=== PATIENT | male | born 1960 | race Caucasian/White ===

== ENCOUNTER 2020-10-27 03:33 | Emergency (ER) | payer MEDICARE ==
[~2020-10-27] VITALS: Ht 172.7 cm; Wt 62.1 kg
== END 2020-10-27 04:20 ==
LOC: ER 03:46
DX: Z43.0 Encounter for attention to tracheostomy (principal)
CPT/HCPCS: 99282

== ENCOUNTER 2020-11-07 04:14 | Inpatient (IN) | payer MEDICARE ==
[~2020-11-07] VITALS: Ht 172.7 cm; Wt 52.2 kg
[2020-11-07] MEDS ORDERED: VANCOMYCIN 1GM/NS 250 ML 250 ML IV STA (04:57)
[2020-11-07] MEDS ORDERED: CEFEPIME HCL 1GM 1 GM in SODIUM CHLORIDE 0.9% 50ML 50 ML IV ONE (05:00)
[2020-11-07] MEDS ORDERED: SODIUM CHLORIDE 0.9% 1000ML 1,000 ML IV SCH (05:00)
[2020-11-07] MEDS ORDERED: ASPIRIN 81 MG CHEW TAB PO ONE ×2 (05:00→06:30)
[2020-11-07 05:48] LABS: BASOPHILS % 0.2 % (0.0-1.0); EOSINOPHILS # (AUTO) 0.1 (0.0-0.4); EOSINOPHILS % 0.5 % (0.0-6.0); HEMATOCRIT 28.1 % (38.2-49.6); HEMOGLOBIN 8.7 g/dL (14.0-18.0); LYMPHOCYTES # (AUTO) 1.7 (1.0-3.2); LYMPHOCYTES % 8.6 % (18.0-39.1); MEAN CORPUSCULAR HEMOGLOBIN 29.1 pg (28-32); MONOCYTES % 4.9 % (4.4-11.3); NEUTROPHILS # (AUTO) 16.9 (2.1-6.9); NEUTROPHILS % 85.2 % (38.7-80.0); PLATELET COUNT 224 x10e3/uL (140-360); RED BLOOD COUNT 2.99 x10e6/uL (4.3-5.7); RED CELL DISTRIBUTION WIDTH 16.8 % (11.7-14.4)
[2020-11-07 06:28] LABS: ALANINE AMINOTRANSFERASE 60 IU/L (0-55); ALBUMIN 2.9 g/dL (3.5-5.0); ALBUMIN/GLOBULIN RATIO 0.7 (0.8-2.0); ALKALINE PHOSPHATASE 134 IU/L (40-150); ANION GAP 16.1 mmol/L (8-16); BLOOD UREA NITROGEN 42 mg/dL (7-26); BUN/CREATININE RATIO 36 (6-25); CALCIUM 8.6 mg/dL (8.4-10.2); CARBON DIOXIDE 24 mmol/L (22-29); CHLORIDE 100 mmol/L (98-107); CREATINE KINASE 343 IU/L (30-200); CREATININE, SERUM 1.17 mg/dL (0.72-1.25); EST GLOMERULAR FILTRATION RATE > 60 ML/MIN (60-); GLUCOSE 92 mg/dL (74-118); POTASSIUM 5.1 mmol/L (3.5-5.1); SODIUM 135 mmol/L (136-145)
[2020-11-07] MEDS: ACETAMINOPHEN 650 MG SUPP PR PRN ×2 (06:32→16:04)
[2020-11-07] MEDS: SODIUM CHLORIDE 0.9% 1000ML 1,000 ML IV SCH ×2 (07:45→14:56)
[2020-11-07 08:35] LABS: CLARITY,URINE CLEAR (CLEAR); COLOR,URINE YELLOW (YELLOW); KETONES,URINE NEGATIVE (NEGATIVE); LEUKOCYTE ESTERASE ,URINE MODERATE (NEGATIVE); NITRITE,URINE NEGATIVE (NEGATIVE); PROTEIN,URINE DIPSTICK 2+ (NEGATIVE); URINE UROBILINOGEN 0.2 mg/dL (0.2 - 1)
[2020-11-07 08:36] LABS: BACTERIA,URINE MANY /HPF; EPITHELIAL CELLS,URINE FEW /LPF; RBC,URINE 21-50 /HPF (0-5); WBC,URINE (MAN) >50 /HPF (0-5)
[2020-11-07 09:58] VITALS: BP 156/74
[2020-11-07] MEDS ORDERED: CLONIDINE HCL0.2 MG PEG (10:43)
[2020-11-07] MEDS ORDERED: AMLODIPINE BESY10 MG PEG (10:43)
[2020-11-07] MEDS ORDERED: BACLOFEN10 MG PEG (10:43)
[2020-11-07] MEDS ORDERED: TYLENOL325 MG PEG (10:43)
[2020-11-07] MEDS ORDERED: ATORVASTATIN CA10 MG PEG (10:43)
[2020-11-07] MEDS ORDERED: FAMOTIDINE20 MG PEG (10:43)
[2020-11-07] MEDS: MEROPENEM 1GM 100 ML IV SCH ×2 (10:45→21:47)
[2020-11-07] MEDS ORDERED: METOPROLOL TART50 MG PEG (11:09)
[2020-11-07] MEDS ORDERED: MIRALAX17 GM PEG (11:09)
[2020-11-07] MEDS ORDERED: HYDRALAZINE HCL50 MG PEG (11:09)
[2020-11-07] MEDS ORDERED: IPRAT-ALBUT 0.5-3 ML NEB (11:09)
[2020-11-07] MEDS ORDERED: GLYCOPYRROLATE2 MG PEG (11:09)
[2020-11-07] MEDS ORDERED: RISPERIDONE0.5 MG PEG (11:09)
[2020-11-07 11:19] VITALS: BP 152/101
[2020-11-07 11:53] VITALS: BP 156/74
[2020-11-07 16:12] VITALS: BP 137/65
[2020-11-07] MEDS ORDERED: NON-FORMULARY MEDICATION (Hydralazine Hcl* 50 MG) PEG SCH (18:00)
[2020-11-07] MEDS: RISPERIDONE 0.5 MG TAB PEG SCH (19:20)
[2020-11-07] MEDS: POLYETHYLENE GLYCOL 3350 17 GM PACK PEG SCH (19:20)
[2020-11-07] MEDS: HYDRALAZINE HCL 25 MG TAB PEG SCH (19:20)
[2020-11-07 20:41] VITALS: BP 140/65
[2020-11-07] MEDS: CLONIDINE HCL 0.3 MG TAB PEG SCH (21:47)
[2020-11-07] MEDS: ATORVASTATIN 10 MG TAB GT SCH (21:47)
[2020-11-07] MEDS: METOPROLOL TARTRATE 50 MG TAB PEG SCH (21:48)
[2020-11-07] MEDS: GLYCOPYRROLATE 1 MG TAB PEG SCH (21:48)
[2020-11-07] MEDS ORDERED: NON-FORMULARY MEDICATION (Glycopyrrolate 1 MG) PEG SCH (22:00)
[2020-11-07 23:05] VITALS: BP 140/65
[2020-11-08] VITALS (8 sets, daily range): BP systolic 119–156; BP diastolic 54–90
[2020-11-08] MEDS: SODIUM CHLORIDE 0.9% 1000ML 1,000 ML IV SCH ×2 (01:40→06:30)
[2020-11-08 02:42] LABS: CREATINE KINASE MB 1.2 ng/mL (0-5.0)
[2020-11-08 04:54] LABS: BASOPHILS % 0.3 % (0.0-1.0); EOSINOPHILS # (AUTO) 0.2 (0.0-0.4); EOSINOPHILS % 1.2 % (0.0-6.0); HEMATOCRIT 24.3 % (38.2-49.6); HEMOGLOBIN 7.4 g/dL (14.0-18.0); LYMPHOCYTES # (AUTO) 1.1 (1.0-3.2); LYMPHOCYTES % 7.7 % (18.0-39.1); MEAN CORPUSCULAR HEMOGLOBIN 29.1 pg (28-32); MEAN CORPUSCULAR HGB CONC 30.5 g/dL (31-35); MEAN CORPUSCULAR VOLUME 95.7 fL (81-99); MONOCYTES # (AUTO) 0.9 (0.2-0.8); MONOCYTES % 6.5 % (4.4-11.3); NEUTROPHILS # (AUTO) 11.5 (2.1-6.9); NEUTROPHILS % 83.7 % (38.7-80.0); PLATELET COUNT 228 x10e3/uL (140-360); RED BLOOD COUNT 2.54 x10e6/uL (4.3-5.7); RED CELL DISTRIBUTION WIDTH 16.7 % (11.7-14.4)
[2020-11-08 05:15] LABS: ALANINE AMINOTRANSFERASE 76 IU/L (0-55); ALBUMIN 2.4 g/dL (3.5-5.0); ALBUMIN/GLOBULIN RATIO 0.6 (0.8-2.0); ALKALINE PHOSPHATASE 105 IU/L (40-150); ANION GAP 14.1 mmol/L (8-16); BLOOD UREA NITROGEN 30 mg/dL (7-26); BUN/CREATININE RATIO 32 (6-25); CALCIUM 8.4 mg/dL (8.4-10.2); CARBON DIOXIDE 20 mmol/L (22-29); CHLORIDE 108 mmol/L (98-107); CREATININE, SERUM 0.93 mg/dL (0.72-1.25); EST GLOMERULAR FILTRATION RATE > 60 ML/MIN (60-); GLUCOSE 104 mg/dL (74-118); POTASSIUM 4.1 mmol/L (3.5-5.1); SODIUM 138 mmol/L (136-145)
[2020-11-08 05:56] LABS: FERRITIN 442.12 ng/mL (21.81-274.66)
[2020-11-08] MEDS: CLONIDINE HCL 0.3 MG TAB PEG SCH ×3 (06:01→22:00)
[2020-11-08] MEDS: METOPROLOL TARTRATE 50 MG TAB PEG SCH ×3 (06:01→22:00)
[2020-11-08] MEDS: POLYETHYLENE GLYCOL 3350 17 GM PACK PEG SCH ×2 (06:01→17:11)
[2020-11-08] MEDS: HYDRALAZINE HCL 25 MG TAB PEG SCH ×4 (06:01→17:09)
[2020-11-08] MEDS: GLYCOPYRROLATE 1 MG TAB PEG SCH ×3 (06:01→22:00)
[2020-11-08] MEDS: RISPERIDONE 0.5 MG TAB PEG SCH ×2 (06:01→17:11)
[2020-11-08] MEDS: ALBUTEROL/IPRATROPIUM 3 ML NEB NEB SCH ×3 (07:30→19:30)
[2020-11-08] MEDS: MEROPENEM 1GM 100 ML IV SCH ×2 (09:12→21:00)
[2020-11-08] MEDS: AMLODIPINE BESYLATE 10 MG TAB PEG SCH (09:12)
[2020-11-08] MEDS: BACLOFEN 10 MG TAB PEG SCH ×2 (09:12→16:05)
[2020-11-08] MEDS: FAMOTIDINE 20 MG TAB PEG SCH ×2 (09:12→16:05)
[2020-11-08] MEDS: VANCOMYCIN 500MG/NS 0.9% 100ML 100 ML IV SCH (15:15)
[2020-11-08] MEDS: ATORVASTATIN 10 MG TAB GT SCH (21:00)
[2020-11-08] MEDS: HEPARIN SOD (PORCINE) 5,000 UNIT/ML VIAL SC SCH (21:00)
[2020-11-08] MEDS: ACETAMINOPHEN 650 MG SUPP PR PRN (22:00)
[2020-11-08] MEDS ORDERED: SODIUM CHLORIDE 0.9% 250ML 250 ML ONE (22:00)
[2020-11-09] VITALS (9 sets, daily range): BP systolic 136–167; BP diastolic 63–89
[2020-11-09] MEDS: VANCOMYCIN 500MG/NS 0.9% 100ML 100 ML IV SCH ×3 (03:01→15:45)
[2020-11-09] MEDS: ALBUTEROL/IPRATROPIUM 3 ML NEB NEB SCH ×4 (03:05→19:35)
[2020-11-09 05:55] LABS: BASOPHILS % 0.3 % (0.0-1.0); EOSINOPHILS # (AUTO) 0.3 (0.0-0.4); EOSINOPHILS % 2.5 % (0.0-6.0); HEMATOCRIT 22.4 % (38.2-49.6); LYMPHOCYTES # (AUTO) 1.9 (1.0-3.2); LYMPHOCYTES % 16.9 % (18.0-39.1); MEAN CORPUSCULAR HEMOGLOBIN 29.3 pg (28-32); MEAN CORPUSCULAR HGB CONC 31.3 g/dL (31-35); MEAN CORPUSCULAR VOLUME 93.7 fL (81-99); MONOCYTES % 8.5 % (4.4-11.3); NEUTROPHILS # (AUTO) 7.9 (2.1-6.9); NEUTROPHILS % 71.3 % (38.7-80.0); PLATELET COUNT 243 x10e3/uL (140-360); RED BLOOD COUNT 2.39 x10e6/uL (4.3-5.7); RED CELL DISTRIBUTION WIDTH 16.5 % (11.7-14.4)
[2020-11-09] MEDS: GLYCOPYRROLATE 1 MG TAB PEG SCH ×3 (06:00→21:09)
[2020-11-09] MEDS: METOPROLOL TARTRATE 50 MG TAB PEG SCH ×3 (06:00→21:09)
[2020-11-09] MEDS: RISPERIDONE 0.5 MG TAB PEG SCH ×2 (06:00→17:16)
[2020-11-09] MEDS: CLONIDINE HCL 0.3 MG TAB PEG SCH ×3 (06:00→21:08)
[2020-11-09] MEDS: POLYETHYLENE GLYCOL 3350 17 GM PACK PEG SCH ×2 (06:00→17:16)
[2020-11-09] MEDS: HYDRALAZINE HCL 25 MG TAB PEG SCH ×5 (06:00→23:55)
[2020-11-09 06:12] LABS: ALANINE AMINOTRANSFERASE 84 IU/L (0-55); ALBUMIN 2.2 g/dL (3.5-5.0); ALBUMIN/GLOBULIN RATIO 0.6 (0.8-2.0); ALKALINE PHOSPHATASE 105 IU/L (40-150); ANION GAP 11.8 mmol/L (8-16); BLOOD UREA NITROGEN 25 mg/dL (7-26); BUN/CREATININE RATIO 31 (6-25); CARBON DIOXIDE 20 mmol/L (22-29); CHLORIDE 108 mmol/L (98-107); CREATININE, SERUM 0.81 mg/dL (0.72-1.25); EST GLOMERULAR FILTRATION RATE > 60 ML/MIN (60-); GLUCOSE 122 mg/dL (74-118); POTASSIUM 3.8 mmol/L (3.5-5.1); SODIUM 136 mmol/L (136-145)
[2020-11-09] MEDS: MEROPENEM 1GM 100 ML IV SCH ×2 (09:43→21:08)
[2020-11-09] MEDS: BACLOFEN 10 MG TAB PEG SCH ×2 (09:44→17:15)
[2020-11-09] MEDS: FAMOTIDINE 20 MG TAB PEG SCH ×2 (09:44→17:15)
[2020-11-09] MEDS: AMLODIPINE BESYLATE 10 MG TAB PEG SCH (09:44)
[2020-11-09] MEDS: HEPARIN SOD (PORCINE) 5,000 UNIT/ML VIAL SC SCH ×2 (10:15→21:08)
[2020-11-09] MEDS: ATORVASTATIN 10 MG TAB GT SCH (21:08)
[2020-11-09] MEDS: ACETAMINOPHEN 325 MG/10 ML UDC PEG PRN (23:54)
[2020-11-10] VITALS (8 sets, daily range): BP systolic 130–160; BP diastolic 57–75
[2020-11-10] MEDS: ALBUTEROL/IPRATROPIUM 3 ML NEB NEB SCH ×4 (00:35→19:40)
[2020-11-10] MEDS: VANCOMYCIN 500MG/NS 0.9% 100ML 100 ML IV SCH ×2 (03:20→18:31)
[2020-11-10] MEDS: POLYETHYLENE GLYCOL 3350 17 GM PACK PEG SCH ×2 (06:03→18:20)
[2020-11-10] MEDS: CLONIDINE HCL 0.3 MG TAB PEG SCH ×3 (06:03→22:23)
[2020-11-10] MEDS: METOPROLOL TARTRATE 50 MG TAB PEG SCH ×3 (06:03→22:23)
[2020-11-10] MEDS: HYDRALAZINE HCL 25 MG TAB PEG SCH ×3 (06:03→18:20)
[2020-11-10] MEDS: RISPERIDONE 0.5 MG TAB PEG SCH ×2 (06:03→18:20)
[2020-11-10] MEDS: GLYCOPYRROLATE 1 MG TAB PEG SCH ×3 (06:03→22:23)
[2020-11-10 06:19] LABS: ANION GAP 15.1 mmol/L (8-16); BLOOD UREA NITROGEN 24 mg/dL (7-26); BUN/CREATININE RATIO 29 (6-25); CALCIUM 8.3 mg/dL (8.4-10.2); CARBON DIOXIDE 19 mmol/L (22-29); CHLORIDE 106 mmol/L (98-107); CREATININE, SERUM 0.82 mg/dL (0.72-1.25); EST GLOMERULAR FILTRATION RATE > 60 ML/MIN (60-); GLUCOSE 110 mg/dL (74-118); POTASSIUM 4.1 mmol/L (3.5-5.1); SODIUM 136 mmol/L (136-145)
[2020-11-10 06:45] LABS: BASOPHILS % 0.4 % (0.0-1.0); EOSINOPHILS # (AUTO) 0.3 (0.0-0.4); EOSINOPHILS % 2.6 % (0.0-6.0); HEMATOCRIT 21.5 % (38.2-49.6); LYMPHOCYTES # (AUTO) 1.8 (1.0-3.2); LYMPHOCYTES % 16.4 % (18.0-39.1); MEAN CORPUSCULAR HEMOGLOBIN 29.6 pg (28-32); MEAN CORPUSCULAR HGB CONC 32.1 g/dL (31-35); MEAN CORPUSCULAR VOLUME 92.3 fL (81-99); MONOCYTES % 9.1 % (4.4-11.3); NEUTROPHILS # (AUTO) 7.8 (2.1-6.9); PLATELET COUNT 252 x10e3/uL (140-360); RED BLOOD COUNT 2.33 x10e6/uL (4.3-5.7); RED CELL DISTRIBUTION WIDTH 16.8 % (11.7-14.4)
[2020-11-10 06:46] LABS: HEMOGLOBIN 6.9 g/dL (14.0-18.0)
[2020-11-10] MEDS ORDERED: SODIUM CHLORIDE 0.9% 250ML 250 ML IV ONE (07:00)
[2020-11-10] MEDS: MEROPENEM 1GM 100 ML IV SCH ×2 (09:00→22:22)
[2020-11-10] MEDS: AMLODIPINE BESYLATE 10 MG TAB PEG SCH (09:00)
[2020-11-10] MEDS: FAMOTIDINE 20 MG TAB PEG SCH ×2 (09:00→18:19)
[2020-11-10] MEDS: HEPARIN SOD (PORCINE) 5,000 UNIT/ML VIAL SC SCH ×2 (09:00→21:00)
[2020-11-10] MEDS: BACLOFEN 10 MG TAB PEG SCH ×2 (09:00→18:19)
[2020-11-10] MEDS ORDERED: SODIUM CHLORIDE 0.9% 250ML 250 ML ONE (13:30)
[2020-11-10] MEDS: ACETAMINOPHEN 325 MG/10 ML UDC PEG PRN (14:48)
[2020-11-10] MEDS: ATORVASTATIN 10 MG TAB GT SCH (22:22)
[2020-11-11] VITALS (8 sets, daily range): BP systolic 142–169; BP diastolic 73–90
[2020-11-11] MEDS: ALBUTEROL/IPRATROPIUM 3 ML NEB NEB SCH ×4 (01:10→19:38)
[2020-11-11] MEDS: VANCOMYCIN 500MG/NS 0.9% 100ML 100 ML IV SCH (03:00)
[2020-11-11 04:45] LABS: BASOPHILS % 0.3 % (0.0-1.0); EOSINOPHILS # (AUTO) 0.4 (0.0-0.4); EOSINOPHILS % 2.8 % (0.0-6.0); HEMATOCRIT 32.7 % (38.2-49.6); HEMOGLOBIN 10.1 g/dL (14.0-18.0); MEAN CORPUSCULAR HEMOGLOBIN 29.5 pg (28-32); MEAN CORPUSCULAR HGB CONC 30.9 g/dL (31-35); MEAN CORPUSCULAR VOLUME 95.6 fL (81-99); MONOCYTES # (AUTO) 0.8 (0.2-0.8); MONOCYTES % 6.3 % (4.4-11.3); NEUTROPHILS # (AUTO) 9.8 (2.1-6.9); NEUTROPHILS % 74.8 % (38.7-80.0); PLATELET COUNT 140 x10e3/uL (140-360); RED BLOOD COUNT 3.42 x10e6/uL (4.3-5.7); RED CELL DISTRIBUTION WIDTH 16.6 % (11.7-14.4)
[2020-11-11] MEDS: HYDRALAZINE HCL 25 MG TAB PEG SCH ×4 (06:10→17:35)
[2020-11-11] MEDS: GLYCOPYRROLATE 1 MG TAB PEG SCH ×3 (06:10→22:00)
[2020-11-11] MEDS: RISPERIDONE 0.5 MG TAB PEG SCH ×2 (06:10→17:35)
[2020-11-11] MEDS: CLONIDINE HCL 0.3 MG TAB PEG SCH ×3 (06:10→22:00)
[2020-11-11] MEDS: METOPROLOL TARTRATE 50 MG TAB PEG SCH ×3 (06:10→22:00)
[2020-11-11] MEDS: POLYETHYLENE GLYCOL 3350 17 GM PACK PEG SCH ×2 (06:10→17:35)
[2020-11-11] MEDS: HEPARIN SOD (PORCINE) 5,000 UNIT/ML VIAL SC SCH ×2 (09:00→20:34)
[2020-11-11] MEDS: MEROPENEM 1GM 100 ML IV SCH (09:25)
[2020-11-11] MEDS: BACLOFEN 10 MG TAB PEG SCH ×2 (09:25→16:56)
[2020-11-11] MEDS: AMLODIPINE BESYLATE 10 MG TAB PEG SCH (09:25)
[2020-11-11] MEDS: FAMOTIDINE 20 MG TAB PEG SCH ×2 (09:25→16:56)
[2020-11-11] MEDS ORDERED: SODIUM CHLORIDE 0.9% 250ML 250 ML ONE (09:43)
[2020-11-11] MEDS ORDERED: CEFEPIME HCL 1 GM VIAL IV SCH (11:45)
[2020-11-11] MEDS: CEFEPIME HCL 1GM 1 GM in SODIUM CHLORIDE 0.9% 50ML 50 ML IV SCH (12:30)
[2020-11-11] MEDS: ACETAMINOPHEN 325 MG/10 ML UDC PEG PRN (12:39)
[2020-11-11] MEDS: ATORVASTATIN 10 MG TAB GT SCH (20:29)
[2020-11-12] VITALS (8 sets, daily range): BP systolic 94–165; BP diastolic 73–87
[2020-11-12] MEDS: ALBUTEROL/IPRATROPIUM 3 ML NEB NEB SCH ×4 (00:02→19:44)
[2020-11-12] MEDS: HYDRALAZINE HCL 25 MG TAB PEG SCH ×2 (01:00→06:00)
[2020-11-12] MEDS: CEFEPIME HCL 1GM 1 GM in SODIUM CHLORIDE 0.9% 50ML 50 ML IV SCH (01:00)
[2020-11-12 04:36] LABS: BASOPHILS # (AUTO) 0.1 (0.0-0.1); BASOPHILS % 0.3 % (0.0-1.0); EOSINOPHILS # (AUTO) 0.4 (0.0-0.4); EOSINOPHILS % 2.3 % (0.0-6.0); HEMATOCRIT 30.1 % (38.2-49.6); HEMOGLOBIN 9.3 g/dL (14.0-18.0); LYMPHOCYTES # (AUTO) 2.2 (1.0-3.2); LYMPHOCYTES % 14.6 % (18.0-39.1); MEAN CORPUSCULAR HEMOGLOBIN 28.8 pg (28-32); MEAN CORPUSCULAR HGB CONC 30.9 g/dL (31-35); MEAN CORPUSCULAR VOLUME 93.2 fL (81-99); MONOCYTES # (AUTO) 1.1 (0.2-0.8); MONOCYTES % 7.2 % (4.4-11.3); NEUTROPHILS # (AUTO) 11.2 (2.1-6.9); NEUTROPHILS % 74.5 % (38.7-80.0); PLATELET COUNT 301 x10e3/uL (140-360); RED BLOOD COUNT 3.23 x10e6/uL (4.3-5.7)
[2020-11-12 04:54] LABS: ANION GAP 15.4 mmol/L (8-16); BLOOD UREA NITROGEN 30 mg/dL (7-26); BUN/CREATININE RATIO 38 (6-25); CALCIUM 8.7 mg/dL (8.4-10.2); CARBON DIOXIDE 22 mmol/L (22-29); CHLORIDE 104 mmol/L (98-107); CREATININE, SERUM 0.79 mg/dL (0.72-1.25); EST GLOMERULAR FILTRATION RATE > 60 ML/MIN (60-); GLUCOSE 109 mg/dL (74-118); POTASSIUM 4.4 mmol/L (3.5-5.1); SODIUM 137 mmol/L (136-145)
[2020-11-12] MEDS: POLYETHYLENE GLYCOL 3350 17 GM PACK PEG SCH (06:00)
[2020-11-12] MEDS: METOPROLOL TARTRATE 50 MG TAB PEG SCH ×3 (06:00→22:12)
[2020-11-12] MEDS: CLONIDINE HCL 0.3 MG TAB PEG SCH ×3 (06:00→22:11)
[2020-11-12] MEDS: GLYCOPYRROLATE 1 MG TAB PEG SCH ×3 (06:10→22:12)
[2020-11-12] MEDS: RISPERIDONE 0.5 MG TAB PEG SCH ×2 (06:10→17:57)
[2020-11-12] MEDS ORDERED: CEFTRIAXONE SOD 1 GM VIAL IV SCH (09:00)
[2020-11-12] MEDS: HEPARIN SOD (PORCINE) 5,000 UNIT/ML VIAL SC SCH ×2 (09:40→21:00)
[2020-11-12] MEDS: BACLOFEN 10 MG TAB PEG SCH ×2 (09:43→17:57)
[2020-11-12] MEDS: FAMOTIDINE 20 MG TAB PEG SCH ×2 (09:44→17:57)
[2020-11-12] MEDS: VANCOMYCIN HCL 125 MG CAPSULE PO SCH ×2 (13:34→17:57)
[2020-11-12] MEDS: VANCOMYCIN 250MG/5ML ORAL SOLN PO SCH (18:30)
[2020-11-12] MEDS: ATORVASTATIN 10 MG TAB GT SCH (21:00)
[2020-11-13] MEDS: VANCOMYCIN 250MG/5ML ORAL SOLN PO SCH ×4 (00:15→17:17)
[2020-11-13] MEDS: ALBUTEROL/IPRATROPIUM 3 ML NEB NEB SCH ×3 (00:50→12:52)
[2020-11-13 01:51] VITALS: BP 154/86
[2020-11-13 05:47] VITALS: BP 153/84
[2020-11-13] MEDS: GLYCOPYRROLATE 1 MG TAB PEG SCH ×2 (06:00→13:00)
[2020-11-13] MEDS: RISPERIDONE 0.5 MG TAB PEG SCH ×2 (06:00→17:17)
[2020-11-13] MEDS: CLONIDINE HCL 0.3 MG TAB PEG SCH ×2 (06:00→13:00)
[2020-11-13] MEDS: METOPROLOL TARTRATE 50 MG TAB PEG SCH ×2 (06:00→13:00)
[2020-11-13 07:42] VITALS: BP 167/78
[2020-11-13 07:49] LABS: BASOPHILS # (AUTO) 0.1 (0.0-0.1); BASOPHILS % 0.3 % (0.0-1.0); EOSINOPHILS # (AUTO) 0.4 (0.0-0.4); EOSINOPHILS % 2.4 % (0.0-6.0); HEMATOCRIT 30.2 % (38.2-49.6); HEMOGLOBIN 9.6 g/dL (14.0-18.0); LYMPHOCYTES # (AUTO) 1.6 (1.0-3.2); LYMPHOCYTES % 10.3 % (18.0-39.1); MEAN CORPUSCULAR HEMOGLOBIN 29.4 pg (28-32); MEAN CORPUSCULAR HGB CONC 31.8 g/dL (31-35); MEAN CORPUSCULAR VOLUME 92.4 fL (81-99); MONOCYTES % 6.7 % (4.4-11.3); NEUTROPHILS # (AUTO) 12.4 (2.1-6.9); NEUTROPHILS % 79.5 % (38.7-80.0); PLATELET COUNT 291 x10e3/uL (140-360); RED BLOOD COUNT 3.27 x10e6/uL (4.3-5.7); RED CELL DISTRIBUTION WIDTH 16.8 % (11.7-14.4)
[2020-11-13 08:09] VITALS: BP 167/78
[2020-11-13 08:42] LABS: ANION GAP 14.5 mmol/L (8-16); BLOOD UREA NITROGEN 25 mg/dL (7-26); BUN/CREATININE RATIO 32 (6-25); CALCIUM 8.5 mg/dL (8.4-10.2); CARBON DIOXIDE 22 mmol/L (22-29); CHLORIDE 102 mmol/L (98-107); CREATININE, SERUM 0.78 mg/dL (0.72-1.25); EST GLOMERULAR FILTRATION RATE > 60 ML/MIN (60-); GLUCOSE 109 mg/dL (74-118); POTASSIUM 4.5 mmol/L (3.5-5.1); SODIUM 134 mmol/L (136-145)
[2020-11-13] MEDS: FAMOTIDINE 20 MG TAB PEG SCH ×2 (09:52→17:17)
[2020-11-13] MEDS: BACLOFEN 10 MG TAB PEG SCH ×2 (09:52→17:16)
[2020-11-13] MEDS: HEPARIN SOD (PORCINE) 5,000 UNIT/ML VIAL SC SCH (09:59)
[2020-11-13 12:31] VITALS: BP 147/76
[2020-11-13] MEDS ORDERED: VANCOCIN HCL250 MG PO (14:33)
[2020-11-13 15:47] VITALS: BP 153/78
[2020-11-14] MEDS ORDERED: BALSAM PERU/CASTOR OIL 60 GM OINT...G. TP SCH (09:00)
== END 2020-11-13 19:37 | DRG 871 ==
LOC: ER 04:21 → ERHOLD 06:32 → MED/SURG2 09:43
PROVIDERS: ADMIT Internal Medicine; ATTEND Internal Medicine
PROC: 02HV33Z Insertion of Infusion Device into Superior Vena Cava, Percutaneous Approach (ICD-10-PCS; principal; 2020-11-12)
DX: A41.9 Sepsis, unspecified organism (principal); J69.0 Pneumonitis due to inhalation of food and vomit; I63.9 Cerebral infarction, unspecified; T83.511A Infection and inflammatory reaction due to indwelling urethral catheter, initial encounter; J96.10 Chronic respiratory failure, unspecified whether with hypoxia or hypercapnia; I69.359 Hemiplegia and hemiparesis following cerebral infarction affecting unspecified side; E44.0 Moderate protein-calorie malnutrition; Z68.1 Body mass index [BMI] 19.9 or less, adult; N17.9 Acute kidney failure, unspecified; N39.0 Urinary tract infection, site not specified; J95.03 Malfunction of tracheostomy stoma; R62.7 Adult failure to thrive; D64.9 Anemia, unspecified; I10 Essential (primary) hypertension; Z74.01 Bed confinement status; Z20.822 Contact with and (suspected) exposure to COVID-19
CPT/HCPCS: 36415; 71045; 74470; 80048; 80053; 80202; 81001; 82550; 82553; 82607; 82728; 82746; 82948; 83540; 83605; 83880; 84466; 84484; 85025; 86850; 86900; 86920; 87040; 87071; 87086; 87186; 87205; 87493; 93005; 94640; 96361; 97139; 99251; 99285; J0692; J1644; J3370; J7030; J7050; P9016; U0002